=== PATIENT | female | born 1990 | race Caucasian/White ===

== ENCOUNTER 2017-01-21 22:44 | Emergency (ER) | payer BC ==
[2017-01-21 22:55] VITALS: BP 122/75; PULSE 102; RESP 18; TEMP 98.8; O2SAT 95
[2017-01-21] MEDS ORDERED: TDAP ADULT 0.5 ML INJ (BOOSTRIX) IM ONE (23:22)
--- NOTE | 2017-01-22 00:06 | EDPHY ---
H & P Time Seen by Provider: 01/21/17 23:12 HPI/ROS: CHIEF COMPLAINT: Laceration right leg HISTORY OF PRESENT ILLNESS: 26-year-old female presents to the emergency department with a laceration to her right lower leg. The patient was playing [employer] and ran into a metal bench and cut her right lower leg. The incident happened earlier this afternoon around 2:00 p.m.. She denies any other injury or trauma. She is unsure of her last tetanus shot. She is able to walk on this but is now having more pain. ROS: Denies numbness or tingling in her toes, retained foreign body, injury to her right ankle or knee. Past Medical/Surgical History: Orthopedic surgery right knee Social History: Single, moved from [place] April of 2016. She works as a second class welder Smoking Status: Never smoked Physical Exam: On examination the patient has a 1.5 cm laceration to the right anterior aspect of the right mid lower leg. No active bleeding noted. No palpable bony tenderness. Normal gait. No evidence of retained foreign body. No signs of infection. Wound margins appear clean. No lymphangitis. Full range of motion of her right knee and right ankle. Constitutional: Initial Vital Signs Temperature (C) 37.1 C 01/21/17 22:52 Heart Rate 102 H 01/21/17 22:52 Respiratory Rate 18 01/21/17 22:52 Blood Pressure 122/75 H 01/21/17 22:52 O2 Sat (%) 95 01/21/17 22:52 O2 Delivery Mode Room Air Allergies/Adverse Reactions: cephalexin [From Keflex] Allergy (Verified 01/21/17 22:52) Penicillins Allergy (Verified 01/21/17 22:52) Home Medications: Medication Instructions Recorded NK [No Known Home Meds] 01/21/17 MDM/Departure - MDM Procedures: Laceration repair. Verbal consent was obtained from the patient. The 1.5 cm laceration on the right anterior lower leg was anesthetized using 1% lidocaine with epinephrine. The wound was irrigated with saline, draped and explored to its base with a gloved finger. There were no deep structures involved. No tendon injury was identified. The wound was repaired with 4 0 Ethilon, 3 sutures. The wound repair was simple. The procedure was performed by myself. Medications Given: Discontinued Medications Diphtheria/Tetanus/Acell Pertussis (Boostrix) 0.5 ml IM .ONCE ONE Stop: 01/21/17 23:23 Last Admin: 01/21/17 23:34 Dose: 0.5 ml ED Course/Re-evaluation: 26-year-old female presents with right lower leg injury. The wound was repaired , see procedure note. I did explain to the patient since her wound was approximately 8 hours all that she is at high risk of infection. She still requested sutures. I think this is reasonable since the wound was very clean. She was given wound care precautions. Her tetanus shot was also updated. - Depart Disposition: Home, Routine, Self-Care Clinical Impression: Laceration of right lower leg Qualifiers: Encounter type: initial encounter Qualified Code(s): S81.811A - Laceration without foreign body, right lower leg, initial encounter Condition: Good Instructions: Care For Your Stitches (ED), Laceration (ED), Acute Wounds (ED) Additional Instructions: Wound Care Follow-Up: Removal of sutures in 10 days. Suture removal is complimentary in uncomplicated cases. Infection or abnormal findings would require reevaluation by the MD. In that case, you may be billed. Your given a tetanus shot today in the emergency department. Return to the emergency department if you develop any signs or symptoms of infection such as redness, swelling, increased pain, fever, purulent drainage. Referrals: Joey Espinoza DO [Doctor of Osteopathy] - 2-3 days, if not improved (Primary care provider aviation ordnance officer)
== END 2017-01-22 00:15 | disposition home or self-care (01) ==
PROC: 0HQKXZZ Repair Right Lower Leg Skin, External Approach (ICD-10-PCS; principal; 2017-01-21)
DX: S81.811A Laceration without foreign body, right lower leg, initial encounter (principal); Z23 Encounter for immunization; W26.8XXA Contact with other sharp object(s), not elsewhere classified, initial encounter; Y93.74 Activity, frisbee